=== PATIENT | female | born 1945 | race Caucasian/White ===

== ENCOUNTER 2017-02-14 07:55 | Day surgery (SDC) | payer OTHER ==
[~2017-02-14] VITALS: Ht 154.9 cm; Wt 53.1 kg
[~2017-02-14 07:55] MED LIST: FISH OIL 1,0001 EAC2 PO
[2017-02-14] MEDS ORDERED: CALCIUM + D SO1 EACH (08:44)
[2017-10-10] MEDS ORDERED: CYAN500 (06:53)
[2017-10-10] MEDS ORDERED: COLLAGEN HYDROLY1 GM (06:54)
[2017-10-10] MEDS ORDERED: VITAMIN PATCH (06:54)
== END 2017-02-14 10:22 | disposition home or self-care (01) ==
LOC: ORSCSDS 07:55
PROVIDERS: Internal Medicine Gastroenterology
PROC: 0DJD8ZZ Inspection of Lower Intestinal Tract, Via Natural or Artificial Opening Endoscopic (ICD-10-PCS; principal; 2017-02-14 09:15)
DX: Z12.11 Encounter for screening for malignant neoplasm of colon (principal); K64.8 Other hemorrhoids; Z86.010 Personal history of colon polyps; E78.5 Hyperlipidemia, unspecified

== ENCOUNTER → 2018-04-11 | Outpatient (CLI) | payer MEDICARE ==
[~2018-04-11] MED LIST changes: +CALCIUM + D SO1 EACH; +COLLAGEN HYDROLY1 GM; +CYAN500; +VITAMIN PATCH
[2018-04-11 16:45] LABS: Alanine Aminotransfer (ALT/SGP 36 U/L (12-78); Albumin, Blood 3.9 g/dL (3.4-5.0); Albumin/Globulin Ratio 1.2 (0.8-1.8); Alk Phos 88 U/L (50-136); Anion Gap 6 mmol/L (6-16); Aspartate Aminotrans (AST/SGOT 26 U/L (12-37); Bilirubin, Total 0.6 mg/dL (0.1-1.0); Blood Urea Nitrogen 13 mg/dL (8-24); Bun/Creatinine Ratio 16.9 (12.0-20.0); CHOL/HDL RATIO 3.5; CO2, Blood 27 mmol/L (21-32); Calcium, Blood 8.4 mg/dL (8.5-10.1); Chloride, Blood 107 mmol/L (98-108); Cholesterol 289 mg/dL (50-200); Creatinine, Blood 0.77 mg/dL (0.40-1.00); Globulin, Blood 3.3 g/dL (2.2-4.0); Glomerular Filtration Rate >60 (60-); Glucose, Blood 87 mg/dL (70-99); HDL Cholesterol 83 mg/dL (>39); LDL/HDL RATIO 2.2; Low Density Lipoprotein Chol 179 mg/dL (0-110); Sodium, Blood 140 mmol/L (136-145); Total Protein, Blood 7.2 g/dL (6.4-8.2); Triglycerides 135 mg/dL (30-160); Very Low Density Lipoprot Chol 27 mg/dL (6-32)
[2018-04-13 05:11] LABS: DHEA-SULFATE 95.8 ug/dL (20.4-186.6); SEX HORM BINDING GLOB, SERUM 182.9 nmol/L (17.3-125.0)
[2018-04-13 20:45] LABS: FREE TESTOSTERONE(DIRECT) 2.7 pg/mL (0.0-4.2); TESTOSTERONE, SERUM 26 ng/dL (3-41)
== END | disposition home or self-care (01) ==
LOC: LAB 15:37 → LAB SHORT 15:37
PROVIDERS: Nurse Practitioner Family
DX: Z00.00 Encounter for general adult medical examination without abnormal findings (principal); E78.5 Hyperlipidemia, unspecified; N95.9 Unspecified menopausal and perimenopausal disorder; R53.83 Other fatigue; R79.82 Elevated C-reactive protein (CRP); R63.5 Abnormal weight gain; Z91.89 Other specified personal risk factors, not elsewhere classified
CPT/HCPCS: 80053; 80061; 82627; 82670; 84144; 84270; 84402; 84403